=== PATIENT | male | born 1965 | race Caucasian/White ===

== ENCOUNTER → 2016-05-13 | Outpatient (CLI) | payer BC ==
--- OUTSIDE RECORDS SUMMARY | 2016-05-13 08:04 | XMS REPORT | Continuity of Care Document ---
Author Author Interface Organization Interface Address Unknown Phone Unavailable Problems Problem Status Onset Date Classification Date Reported Comments Source Medications Medication Details Route Status Patient Instructions Ordering Provider Order Date Source Allergies, Adverse Reactions, Alerts Substance Category Reaction Severity Reaction type Status Date Reported Comments Source Immunizations Immunization Date Given Site Status Last Updated Comments Source Results Order Name Results Value Reference Range Date Interpretation Comments Source Vital Signs Vital Sign Value Date Comments Source Encounters Location Location Details Encounter Type Encounter Number Reason For Visit Attending Provider ADM Date DC Date Status Source [facility] [id number] Emergency [id number] Preston Carrington 06/22/2013 06/22/2013 Active [employer], [facility] Procedures Procedure Code Date Perfomer Comments Source
--- NOTE | 2016-05-16 09:32 | STRESS TEST ---
PROCEDURE PHYSICIAN: ELKE MANTILLA DATE OF PROCEDURE: 05/13/2016 EXERCISE STRESS TEST REPORT: REFERRING PHYSICIAN: CHANTEL Whyte INDICATION: 1. Chest pain. 2. Hypertension. 3. Hyperlipidemia. 4. Significant family history of premature coronary artery disease. PROCEDURE DETAILS: The patient was brought to the stress lab after informed consent was taken. Stress test was performed according to the standard [facility] protocol. Baseline heart rate was 76 with sinus rhythm. Blood pressure was 142/96 mmHg. The patient exercised for 13 minutes and 19 seconds and achieved 14.8 metabolic equivalents. Maximum heart rate was 182 bpm which is 106% of the maximum predicted heart rate response. Maximum blood pressure was 205/59 mmHg. The patient did not have any chest pain during the stress test. There were no arrhythmias noted. There was no ST-T wave abnormalities noted. Stress test was stopped secondary to fatigue. CONCLUSION: 1. Excellent functional capacity. 2. Hypertensive response to exercise. We recommended that he increase his dose of amlodipine and follow up with his Primary Care Physician as soon as possible. 3. Negative exercise stress test. Job ID: [id number] Dictated Date: 05/16/2016 09:11:59 Air Traffic Coordinator Date: 05/16/2016 09:23:41 / kaia LIMA
== END ==
LOC: CARD 08:01
PROVIDERS: ATTEND Physician Assistant
DX: Z82.49 Family history of ischemic heart disease and other diseases of the circulatory system (principal)
CPT/HCPCS: 93017